=== PATIENT | male | born 1955 | race Caucasian/White ===

== ENCOUNTER 2021-10-22 16:59 | Emergency (ER) | payer BC, SELFPAY ==
--- NOTE | ~2021-10-22 | CT_ITS ---
EXAMINATION CTA CHEST, ABDOMEN AND PELVIS WITH CONTRAST CLINICAL INFORMATION: Lightheadedness, chest pain and diaphoresis COMPARISON: None. TECHNIQUE: Multidetector volumetric CT imaging of the chest, abdomen and pelvis was obtained after the administration of 80 mL of intravenous Omnipaque 350 without immediate adverse reactions. Coronal and sagittal reformats were reviewed. This CT examination was performed using dose optimization techniques as appropriate, variously including the following: *Automated exposure control *Adjustment of mA and/or kV according to patient size (this includes techniques or standardized protocols for targeted exams where dose is matched to indication/reason for exam; i.e. extremities or head) *Use of iterative reconstruction technique DLP: 832 mGy-cm. FINDINGS: VASCULAR: No aortic aneurysm or dissection. Celiac axis, mesenteric arteries and renal arteries are all patent. NONVASCULAR: CHEST LUNGS/PLEURA: There are scattered pulmonary nodules measuring 4 mm or less There is no pleural effusion. No pleural mass or thickening. MEDIASTINUM/SAUL: Normal heart size. No pericardial effusion. Triple vessel coronary calcifications. No mediastinal or hilar lymphadenopathy. CHEST WALL/AXILLA: Unremarkable. ABDOMEN/PELVIS HEPATOBILIARY: Liver normal in size, contour and morphology. There is a 1.6 cm hypodensity in the lateral segment adjacent to the falciform ligament favored to represent focal fatty infiltration. No suspicious lesions. No intra or extrahepatic biliary dilation. Gallbladder unremarkable. PANCREAS: Unremarkable. SPLEEN: Unremarkable. ADRENAL GLANDS: Unremarkable. KIDNEYS, URETERS AND BLADDER: Kidneys normal in size, axis and morphology demonstrating symmetric enhancement. There is a 3.9 cm hypodensity in the lower pole left kidney favored representing a complex cyst. An interlobar artery is seen coursing through the structure. No hydronephrosis or urinary calculi. Ureters normal in course and caliber. Bladder grossly unremarkable.. GASTROINTESTINAL TRACT: Sigmoid colonic diverticulosis without evidence of diverticulitis. PELVIC VISCERA: Prostatomegaly. LYMPH NODES: No lymphadenopathy. PERITONEUM/BODY WALL: Unremarkable. OSSEOUS STRUCTURES No acute or suspicious osseous abnormalities. CT/CT angio abdomen pelvis IMPRESSION: * No aortic aneurysm or dissection. * No acute pulmonary abnormalities. * Scattered pulmonary nodules measuring elements are less. Pulmonary nodules of this size do not necessitate follow-up per Fleischner Society guidelines, however a follow-up CT chest in one year is considered optional. * Coronary calcifications. * There is a 3.9 cm complex cyst in lower pole left kidney. Recommend nonemergent renal ultrasound to confirm benign etiology. * Left colonic diverticulosis without evidence of diverticulitis.
--- NOTE | ~2021-10-22 | XR_ITS ---
EXAMINATION: XR chest 1V CLINICAL INFORMATION: Chest pain COMPARISON: None TECHNIQUE: XR chest 1V Tubes and lines: None Lungs and pleura: Both lungs are clear. Heart and mediastinum: The mediastinum is within normal limits.. Bones/soft tissue: Skeletal structures included are normal for patient's age. XR/XR chest 1V IMPRESSION: No radiographic evidence of acute cardiopulmonary disease.
[2021-10-22 17:02] VITALS: BP 130/77; PULSE 67; RESP 18; TEMP 36.6; O2SAT 100; BMI 31.4
--- NOTE | 2021-10-22 17:05 | ECG_ITS ---
Test Reason : CP Blood Pressure : / mmHG Vent. Rate : 060 BPM Atrial Rate : 060 BPM P-R Int : 172 ms QRS Dur : 090 ms QT Int : 380 ms P-R-T Axes : 000 160 153 degrees QTc Int : 380 ms Suspect limb lead reversal, interpretation assumes no reversal Normal sinus rhythm Lateral infarct , age undetermined Inferior infarct , age undetermined Abnormal ECG No previous ECGs available Referred By: Generic ED Physician Electronically Signed By:
--- NOTE | 2021-10-22 17:22 | ED_ITS ---
HPI - Chest Pain General Chief Complaint: Chest Pain Stated Complaint: chest pain Time Seen by Provider: 10/22/21 21:38 Source: patient Mode of arrival: ambulatory Limitations: no limitations History of Present Illness HPI narrative: 66-year-old male presents with substernal chest pain, felt tight pressure with palpitations and diaphoresis. He had several episodes last night starting at 17:30. He had a difficult time sleeping last night. He does report some lightheadedness and dizziness. Does not report any prior episodes of chest pain or cardiac events. MD complaint: chest pain and chest heaviness Onset (ago): day(s) (1) Timing of current episode: episodic Prior episodes: No Onset: during rest Pain location: substernal Pain radiation: none Severity: moderate Quality: tightness and other (Pulsatile) Relieving factors: rest Exacerbating factors: nothing Associated symptoms: diaphoresis and palpitations Treatment prior to arrival: aspirin (81 mg) Risk Factors Coronary artery disease risk factors: hyperlipidemia and hypertension Thoracic aortic dissection risk factors: none Related Data Allergies Allergy/AdvReac Type Severity Reaction Status Date / Time No Known Allergies Allergy Verified 10/22/21 17:23 Review of Systems Review of Systems: Constitutional: No Weight loss, No Fever, No Chills, No Night Sweats, No Fatigue, No Malaise ENT/Mouth: No Hearing loss, No Ear Pain, No Nasal Congestion, No Sinus Pain, No Hoarseness, No sore throat, No Rhinorrhea, No Swallowing Difficulty Eyes: No Eye Pain, No Swelling, No Redness, No Foreign Body, No Discharge, No Vision Changes Cardiovascular: Positive Chest Pain, no SOB, no Dyspnea on Exertion, No Ortho pnea, No Edema, positive Palpitations Respiratory: No Cough, No Sputum, No Wheezing, No Smoke Exposure, No Dyspnea Gastrointestinal: No Nausea, No Vomiting, No Diarrhea, No abdominal Pain, No Hematochezia, No Melena Genitourinary: No irregular bleeding, No Dysuria, No Urinary Frequency, No Hemat uria, No Urinary Incontinence, No Urgency, No Flank Pain, No Urinary Flow Changes, No Hesitancy Musculoskeletal: No joint pain, No Myalgias, No Joint Swelling Skin: No Skin Lesions, No rash Neuro: No Weakness, No Numbness, No Paresthesias, No Loss of Consciousness, No Dizziness, No Headache Psych: No Anxiety/Panic, No Depression, No SI/HI/AH/VH Heme/Lymph: No Bruising, No Bleeding,No Lymphadenopathy Endocrine: No Polyuria, No Polydipsia, No Temperature Intolerance Yes all other systems are reviewed and are negative [facility], LAT[facility] Past Medical History Attestation statement: The following information was validated with the patient. Source: old records reviewed Social History Social History Advance Directives: No Advance Directives Information Provided: Yes Physical Exam Vital Signs: Vital Signs: Last Vital Signs Temp 97.8 F 10/22/21 22:31 Pulse 68 10/22/21 22:31 Resp 18 10/22/21 22:31 BP 105/53 L 10/22/21 22:31 Pulse Ox 96 10/22/21 22:31 O2 Del Method 10/22/21 22:31 BMI result Body Mass Index 31.4 Appearance: Alert. Oriented X3. No acute distress. Eyes: Pupils equal, round and reactive to light. Sclera nonicteric. ENT: Pharynx normal. Moist mucous membranes. Neck: Normal inspection. Neck supple. No JVD. CVS: Normal heart rate and rhythm. Pulses normal. Respiratory: No respiratory distress. Breath sounds normal. Abdomen: Soft and nontender. No pulsatile masses or hepatosplenomegaly however exam limited secondary to body habitus. Skin: Skin warm and dry. Normal skin color. Normal skin turgor. Extremities: No lower extremity edema. Gait well-balanced well coordinated. Neuro: No motor deficit. No sensory deficit. Cranial nerves 2-12 intact. Course Course Course Narrative: 66-year-old male presents with episodic chest pain that started substernally with epigastric palpitations. States that he was stacking wood pile and about an hour into his activities he noted some chest pain with palpitations and dizziness. Later on that evening he had some palpitations with diaphoresis while resting. He does take atorvastatin for hyperlipidemia but has not ever had any chest pain like this in the past. He does not report any loss of balance, numbness or tingling, or any radiating pain to arms legs or neck. It is concerning that patient feels pulsatile palpitations in his abdomen, has not had a CT scan to rule out aneurysm in the past. He does not have any family history of aneurysms or sudden cardiac . Will order cardiac workup as well as CT angiogram to rule out aneurysm. 21:40 labs are unremarkable. Troponins are both negative. Chest x-ray is negative. EKG is normal sinus. Low likelihood of ACS. 22:40 CT scan negative for aneurysm and dissection. Positive for coronary calcification and complex renal cyst. Detailed description of need for follow- up with primary care physician and Nephrology. Patient will follow-up with primary care and get referrals from his primary care. Patient verbalized understanding of and agrees to plan of care to discharge home. Verbalized understanding of signs and symptoms indicating need for emergent intervention MDM - Chest Pain Differential Diagnosis Differential diagnosis: Likely fracture of rib, pneumothorax, stable angina, atypical chest pain, st elevation myocardial infarction and costochondritis Medical Records Data Attestation: I reviewed the patient's medical records. Lab Data Attestation: I reviewed the patient's lab results. Result diagrams: 10/22/21 17:46 10/22/21 17:46 Labs: Lab Results 10/22/21 10/22/21 10/22/21 Range/Units 17:46 17:46 17:46 WBC 7.3 (4.8-10.8) X10*3/uL RBC 4.66 (4.60-5.80) X10*6/uL Hgb 14.1 (14.0-18.0) g/dl Hct 42.1 (42.0-52.0) % MCV 90.3 (80.0-98.0) fL MCH 30.3 (27.0-33.0) pg MCHC 33.5 (31.0-36.0) g/dl RDW 13.1 (11.0-16.0) % Plt Count 307 (160-400) X10*3/uL MPV 10.3 (9.4-12.4) fL Immature Gran % (Auto) 0.3 (0.0-0.4) % Neut % (Auto) 49.1 (45-73) % Lymph % (Auto) 35.2 (20-40) % Blaine % (Auto) 10.5 (2-11) % Eos % (Auto) 3.7 (0-4) % Baso % (Auto) 1.2 (0-2) % Lymph # (Auto) 2.6 (1.2-4.9) X10*3/uL Blaine # (Auto) 0.8 (0.1-1.2) X10*3/uL Eos # (Auto) 0.3 (0.0-0.4) X10*3/uL Baso # (Auto) 0.1 (0.0-0.2) X10*3/uL Abs Immat Gran (auto) 0.02 (0.00-0.03) X10*3/uL Absolute Neuts (auto) 3.6 (2.0-8.3) x10*3/uL Absolute Nucleated RBC 0.000 (0.0-0.012) X10*3/uL Nucleated RBC % (auto) 0.0 (0.0-0.2) /100WBC PT (9.9-13.0) SEC INR (0.9-1.1) APTT 37.6 (24.1-38.0) SEC Sodium 142 (135-145) mmol/L Potassium 4.5 (3.3-5.1) mmol/L Chloride 105 (96-108) mmol/L Carbon Dioxide 29 (22-29) mmol/L Anion Gap 13 (12-20) BUN 19 H (9-16) mg/dL Creatinine 0.87 (0.5-1.4) mg/dL Estim Creat Clear Calc 112.2 Estimated GFR > 60 Random Glucose 104 (60-115) mg/dL Calcium 9.9 (8.4-10.2) mg/dL Magnesium 2.3 (1.6-2.6) mg/dL Total Bilirubin 0.5 (0.0-1.0) mg/dL Direct Bilirubin 0.2 (0.0-0.5) mg/dL AST 35 (5-37) U/L ALT 46 H (0-40) U/L Alkaline Phosphatase 75 (39-117) U/L Troponin I High Sens (<3.5-35.0) ng/L Total Protein 7.1 (6.5-8.0) g/dL Albumin 4.3 (3.5-5.0) g/dL Lipase 36 (8-78) U/L Influenza Type A (PCR) (Negative) Influenza Type B (PCR) (Negative) RSV RNA Qual (PCR) (Negative) SARS-CoV-2 RNA (RT-PCR) (Negative) 10/22/21 10/22/21 10/22/21 Range/Units 17:46 17:46 17:46 WBC (4.8-10.8) X10*3/uL RBC (4.60-5.80) X10*6/uL Hgb (14.0-18.0) g/dl Hct (42.0-52.0) % MCV (80.0-98.0) fL MCH (27.0-33.0) pg MCHC (31.0-36.0) g/dl RDW (11.0-16.0) % Plt Count (160-400) X10*3/uL MPV (9.4-12.4) fL Immature Gran % (Auto) (0.0-0.4) % Neut % (Auto) (45-73) % Lymph % (Auto) (20-40) % Blaine % (Auto) (2-11) % Eos % (Auto) (0-4) % Baso % (Auto) (0-2) % Lymph # (Auto) (1.2-4.9) X10*3/uL Blaine # (Auto) (0.1-1.2) X10*3/uL Eos # (Auto) (0.0-0.4) X10*3/uL Baso # (Auto) (0.0-0.2) X10*3/uL Abs Immat Gran (auto) (0.00-0.03) X10*3/uL Absolute Neuts (auto) (2.0-8.3) x10*3/uL Absolute Nucleated RBC (0.0-0.012) X10*3/uL Nucleated RBC % (auto) (0.0-0.2) /100WBC PT 12.4 (9.9-13.0) SEC INR 1.1 (0.9-1.1) APTT (24.1-38.0) SEC Sodium (135-145) mmol/L Potassium (3.3-5.1) mmol/L Chloride (96-108) mmol/L Carbon Dioxide (22-29) mmol/L Anion Gap (12-20) BUN (9-16) mg/dL Creatinine (0.5-1.4) mg/dL Estim Creat Clear Calc Estimated GFR Random Glucose (60-115) mg/dL Calcium (8.4-10.2) mg/dL Magnesium (1.6-2.6) mg/dL Total Bilirubin (0.0-1.0) mg/dL Direct Bilirubin (0.0-0.5) mg/dL AST (5-37) U/L ALT (0-40) U/L Alkaline Phosphatase (39-117) U/L Troponin I High Sens 9.0 (<3.5-35.0) ng/L Total Protein (6.5-8.0) g/dL Albumin (3.5-5.0) g/dL Lipase (8-78) U/L Influenza Type A (PCR) NEGATIVE (Negative) Influenza Type B (PCR) NEGATIVE (Negative) RSV RNA Qual (PCR) NEGATIVE (Negative) SARS-CoV-2 RNA (RT-PCR) NEGATIVE (Negative) 10/22/21 Range/Units 22:04 WBC (4.8-10.8) X10*3/uL RBC (4.60-5.80) X10*6/uL Hgb (14.0-18.0) g/dl Hct (42.0-52.0) % MCV (80.0-98.0) fL MCH (27.0-33.0) pg MCHC (31.0-36.0) g/dl RDW (11.0-16.0) % Plt Count (160-400) X10*3/uL MPV (9.4-12.4) fL Immature Gran % (Auto) (0.0-0.4) % Neut % (Auto) (45-73) % Lymph % (Auto) (20-40) % Blaine % (Auto) (2-11) % Eos % (Auto) (0-4) % Baso % (Auto) (0-2) % Lymph # (Auto) (1.2-4.9) X10*3/uL Blaine # (Auto) (0.1-1.2) X10*3/uL Eos # (Auto) (0.0-0.4) X10*3/uL Baso # (Auto) (0.0-0.2) X10*3/uL Abs Immat Gran (auto) (0.00-0.03) X10*3/uL Absolute Neuts (auto) (2.0-8.3) x10*3/uL Absolute Nucleated RBC (0.0-0.012) X10*3/uL Nucleated RBC % (auto) (0.0-0.2) /100WBC PT (9.9-13.0) SEC INR (0.9-1.1) APTT (24.1-38.0) SEC Sodium (135-145) mmol/L Potassium (3.3-5.1) mmol/L Chloride (96-108) mmol/L Carbon Dioxide (22-29) mmol/L Anion Gap (12-20) BUN (9-16) mg/dL Creatinine (0.5-1.4) mg/dL Estim Creat Clear Calc Estimated GFR Random Glucose (60-115) mg/dL Calcium (8.4-10.2) mg/dL Magnesium (1.6-2.6) mg/dL Total Bilirubin (0.0-1.0) mg/dL Direct Bilirubin (0.0-0.5) mg/dL AST (5-37) U/L ALT (0-40) U/L Alkaline Phosphatase (39-117) U/L Troponin I High Sens 8.6 (<3.5-35.0) ng/L Total Protein (6.5-8.0) g/dL Albumin (3.5-5.0) g/dL Lipase (8-78) U/L Influenza Type A (PCR) (Negative) Influenza Type B (PCR) (Negative) RSV RNA Qual (PCR) (Negative) SARS-CoV-2 RNA (RT-PCR) (Negative) Imaging Data Chest x-ray: Attestation: I personally reviewed and interpreted this imaging study as follows: Radiologist's impression: EXAMINATION: XR chest 1V CLINICAL INFORMATION: Chest pain COMPARISON: None? TECHNIQUE: XR chest 1V Tubes and lines: None Lungs and pleura: Both lungs are clear. Heart and mediastinum: The mediastinum is within normal limits.. Bones/soft tissue: Skeletal structures included are normal for patient's age. XR/XR chest 1V IMPRESSION: No radiographic evidence of acute cardiopulmonary disease. CT angio aorta: Attestation: I personally reviewed and interpreted this imaging study as follows: Radiologist's impression: FINDINGS: VASCULAR: No aortic aneurysm or dissection. Celiac axis, mesenteric arteries and renal arteries are all patent. NONVASCULAR: CHEST LUNGS/PLEURA: There are scattered pulmonary nodules measuring 4 mm or less There is no pleural effusion. No pleural mass or thickening.? MEDIASTINUM/SAUL: Normal heart size. No pericardial effusion. Triple vessel coronary calcifications. No mediastinal or hilar lymphadenopathy.? CHEST WALL/AXILLA: Unremarkable.? ABDOMEN/PELVIS HEPATOBILIARY: Liver normal in size, contour and morphology. There is a 1.6 cm hypodensity in the lateral segment adjacent to the falciform ligament favored to represent focal fatty infiltration. No suspicious lesions. No intra or extrahepatic biliary dilation. Gallbladder unremarkable. PANCREAS: Unremarkable. SPLEEN: Unremarkable. ADRENAL GLANDS: Unremarkable. KIDNEYS, URETERS AND BLADDER: Kidneys normal in size, axis and morphology demonstrating symmetric enhancement. There is a 3.9 cm hypodensity in the lower pole left kidney favored representing a complex cyst. An interlobar artery is seen coursing through the structure. No hydronephrosis or urinary calculi. Ureters normal in course and caliber. Bladder grossly unremarkable.. GASTROINTESTINAL TRACT: Sigmoid colonic diverticulosis without evidence of diverticulitis.? PELVIC VISCERA: Prostatomegaly. LYMPH NODES: No lymphadenopathy. PERITONEUM/BODY WALL: Unremarkable. OSSEOUS STRUCTURES? No acute or suspicious osseous abnormalities. ? CT/CT angio chest aorta IMPRESSION: *? No aortic aneurysm or dissection. *? No acute pulmonary abnormalities. *? Scattered pulmonary nodules measuring elements are less. Pulmonary nodules of this size do not necessitate follow-up per Fleischner Society guidelines, however a follow-up CT chest in one year is considered optional. *? Coronary calcifications. *? There is a 3.9 cm complex cyst in lower pole left kidney. Recommend nonemergent renal ultrasound to confirm benign etiology. *? Left colonic diverticulosis without evidence of diverticulitis. ECG Data ECG #1: Attestation: I personally reviewed and interpreted this ECG as follows: ECG interpretation date: 10/22/21 ECG interpretation time: 17:01 Prior ECG tracings: available for review Interpretation: Vent. rate 64 BPM OK interval 160 ms QRS duration 90 ms QT/QTc 388/400 ms P-R-T axes 35 20 26 Normal sinus rhythm Normal ECG When compared with ECG of 22-OCT-2021 17:01, QRS axis Shifted left Criteria for Inferior infarct are no longer Presen Discharge Plan Discharge Clinical Impression: Chest pain, Heart palpitations, Complex renal cyst, Calcification of coronary artery Patient Disposition: Home, Self-Care Instructions: Coronary Artery Disease (DC), Chest Pain (DC), Heart Palpitations (ED), Heart Palpitations (DC), Kidney Cyst (ED) Additional Instructions: You were evaluated for chest pain and palpitations. CT scan angiogram indicates 3 coronary arteries that are calcified. We did not find any aneurysms or dissections. Incidental finding of a 3.9 cm complex cyst of the lower left pole of the kidney. you must follow-up with primary care physician for coronary calcifications as well as kidney cysts. You do have multiple pulmonary nodules that need to be followed up in 1 year. Thank you for choosing this emergency department for evaluation. Please follow-up with primary care physician as needed. Return to the emergency department for any new, concerning, or worsening symptoms. Interventions: ED Discharge Assessment Last Done: 10/22/21 22:58 Discharge Date/Time: 10/22/21 23:03
[2021-10-22 17:50] LABS: MANUAL DIFF FLAG NO
[2021-10-22 17:51] LABS: Basophils Absolute Auto 0.1 X10*3/uL (0.0-0.2); Basophils Percent Auto 1.2 % (0-2); Eosinophils Absolute Auto 0.3 X10*3/uL (0.0-0.4); Eosinophils Percent Auto 3.7 % (0-4); Hematocrit 42.1 % (42.0-52.0); Hemoglobin 14.1 g/dl (14.0-18.0); Imm Gran Abs Auto 0.02 X10*3/uL (0.00-0.03); Imm Gran Pct Auto 0.3 % (0.0-0.4); Lymphocytes Absolute Auto 2.6 X10*3/uL (1.2-4.9); Lymphocytes Percent Auto 35.2 % (20-40); Mean Corpuscular HGB Conc 33.5 g/dl (31.0-36.0); Mean Corpuscular Hemoglobin 30.3 pg (27.0-33.0); Mean Corpuscular Volume 90.3 fL (80.0-98.0); Mean Platelet Volume 10.3 fL (9.4-12.4); Monocytes Absolute Auto 0.8 X10*3/uL (0.1-1.2); Monocytes Percent Auto 10.5 % (2-11); Neutrophils Absolute Auto 3.6 x10*3/uL (2.0-8.3); Neutrophils Percent Auto 49.1 % (45-73); Platelet Count 307 X10*3/uL (160-400); Red Blood Count 4.66 X10*6/uL (4.60-5.80); Red Cell Distribution Width 13.1 % (11.0-16.0); White Blood Count 7.3 X10*3/uL (4.8-10.8)
[2021-10-22 17:57] LABS: INTERNATIONAL NORM RATIO 1.1 (0.9-1.1); Prothrombin Time 12.4 SEC (9.9-13.0)
[2021-10-22 18:10] LABS: Alanine Aminotransferase 46 U/L (0-40); Albumin Level 4.3 g/dL (3.5-5.0); Alkaline Phosphatase 75 U/L (39-117); Anion Gap 13 (12-20); Aspartate Amino Transferase 35 U/L (5-37); Bilirubin Direct 0.2 mg/dL (0.0-0.5); Bilirubin Total 0.5 mg/dL (0.0-1.0); Blood Urea Nitrogen 19 mg/dL (9-16); Calcium 9.9 mg/dL (8.4-10.2); Carbon Dioxide 29 mmol/L (22-29); Chloride 105 mmol/L (96-108); Creatinine Clr Calc Pharmacy 112.2; Estimated Glomerular Filt Rate > 60; Glucose Random 104 mg/dL (60-115); Lipase 36 U/L (8-78); Magnesium 2.3 mg/dL (1.6-2.6); Potassium 4.5 mmol/L (3.3-5.1); Sodium 142 mmol/L (135-145); Total Protein 7.1 g/dL (6.5-8.0)
[2021-10-22 18:16] LABS: Partial Thromboplastin Time 37.6 SEC (24.1-38.0)
[2021-10-22 18:36] LABS: Influenza A PCR NEGATIVE (Negative); Influenza B PCR NEGATIVE (Negative); Resp Syncy Virus RNA Qual PCR NEGATIVE (Negative); SARS COV2 PCR INHOUSE NEGATIVE (Negative)
[2021-10-22] MEDS: iohexoL 350 MG/ML 100 ML INFUS..BTL IV (19:47)
[2021-10-22 22:31] VITALS: BP 105/53; PULSE 68; RESP 18; TEMP 36.6; O2SAT 96
[2021-10-22 22:35] LABS: Troponin-I High Sensitivity 8.6 ng/L (<3.5-35.0)
== END 2021-10-22 23:03 | disposition home or self-care (01) ==
PROVIDERS: Nurse Practitioner Family; Emergency Provider Internal Medicine; PCP Physician Assistant Medical
DX: R07.9 Chest pain, unspecified (principal); R00.2 Palpitations; I25.10 Atherosclerotic heart disease of native coronary artery without angina pectoris; N28.1 Cyst of kidney, acquired; E78.5 Hyperlipidemia, unspecified; Z79.899 Other long term (current) drug therapy; Z20.822 Contact with and (suspected) exposure to COVID-19
CPT/HCPCS: 0241U; 36415; 71045; 71275; 74174; 80048; 80076; 83690; 83735; 84484; 85025; 85610; 85730; 93005; 99284; Q9967